=== PATIENT | male | born 1960 | race Caucasian/White ===

== ENCOUNTER → 2018-04-07 | Outpatient (CLI) | payer BC ==
[~2018-04-07] MED LIST: IOHEXOL 240 MG/ML 50ML VIAL. ONE; IOHEXOL 240 MG/ML 50ML VIAL. PO ONE; IOHEXOL 300 MG/ML 75 ML VIAL. IV ONE
--- NOTE | 2018-04-07 12:07 | RAD ---
Indication:lower abdominal pain TECHNIQUE: CT abdomen and pelvis with IV contrast with multiplanar reformats. COMPARISON: None FINDINGS: Heart is normal in size. Clear lung bases. Scattered too small to characterize low attenuating lesions are seen in the liver. Spleen is normal in morphology. No radiopaque gallstones. Pancreas within normal limits without peripancreatic inflammatory changes or focal pancreatic lesion. 1.4 x 1.4 cm nodule is seen in the left adrenal gland. No nephrolithiasis or hydronephrosis. No retroperitoneal or pelvic adenopathy. Moderate diffuse atherosclerotic disease of the infrarenal aorta and bilateral iliac arteries. No bowel obstruction. Mild sigmoid colon diverticulosis. Normal appendix. Urinary bladder is distended without focal lesion. Prostate demonstrates heterogenous enhancement and is unenlarged measuring 6.1 x 4.4 cm (transverse, AP). Seminal vesicles demonstrate no mass lesion. No suspicious bony lesion. IMPRESSION: 1. No acute findings. 2. No nephrolithiasis or hydronephrosis. 3. No bowel obstruction. Normal appendix. 4. Enlarged prostate. Correlate with physical exam and PSA. 5. 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 Electronically signed by: Dillon Prado DO (04/07/2018 12:03 PM) [facility]
== END | disposition home or self-care (01) ==
LOC: CT 09:40
PROVIDERS: ATTEND Physician Assistant
DX: K57.30 Diverticulosis of large intestine without perforation or abscess without bleeding (principal); I70.0 Atherosclerosis of aorta; N32.89 Other specified disorders of bladder
CPT/HCPCS: 74177; Q9966